=== PATIENT | male | born 1985 | race Caucasian/White ===

== ENCOUNTER 2019-04-07 18:50 | Emergency (ER) | payer OTHER ==
--- NOTE | 2019-04-07 19:06 | ER Document Report ---
ED Medical Screen (RME) - General Chief Complaint: Nausea/Vomiting/Diarrhea Stated Complaint: DIZZY,VOMITING,DIARRHEA Time Seen by Provider: 04/07/19 19:02 Mode of Arrival: Ambulatory Information source: Patient Notes: Patient presents to the emergency department with complaints of diarrhea since yesterday. Noted blood in the stool today. Reports he has been having diarrhea all night long. Reports his was sick though after they ate at [employer] but she got better. Looks good nontoxic looking. Has history of IBS. I have greeted and performed a rapid initial assessment of this patient. A comprehensive ED assessment and evaluation of the patient, analysis of test results and completion of the medical decision making process will be conducted by additional ED providers. Dictation of this chart was performed using voice recognition software; therefore, there may be some unintended grammatical errors. TRAVEL OUTSIDE OF THE [place] IN LAST 30 DAYS: No - Related Data Allergies/Adverse Reactions: No Known Allergies Allergy (Verified 04/07/19 18:52) Physical Exam - Vital signs Vitals: Temp Pulse Resp BP Pulse Ox 98.5 F 87 20 134/82 H 97 04/07/19 18:57 04/07/19 18:57 04/07/19 18:57 04/07/19 18:57 04/07/19 18:57 Course - Vital Signs Vital signs: Temp Pulse Resp BP Pulse Ox 98.5 F 87 20 134/82 H 97 04/07/19 18:57 04/07/19 18:57 04/07/19 18:57 04/07/19 18:57 04/07/19 18:57
[2019-04-07] MEDS ORDERED: ONDANSETRON 4 MG TAB.RAPDIS PO ONE (19:10)
[2019-04-07 20:01] LABS: ABSOLUTE EOSINOPHILS # (AUTO) 0.2 10^3/uL (0.0-0.6); ABSOLUTE LYMPHOCYTES (AUTO) 3.3 10^3/uL (0.5-4.7); ABSOLUTE MONOCYTES (AUTO) 0.5 10^3/uL (0.1-1.4); ABSOLUTE NEUT (AUTO) 3.6 10^3/uL (1.7-8.2); BASOPHILS % (AUTO) 0.3 % (0-2); EOSINOPHILS % (AUTO) 3.1 % (0-6); HEMATOCRIT 42.1 % (37.9-51.0); HEMOGLOBIN 14.7 g/dL (13.5-17.0); LYMPHOCYTES % (AUTO) 42.9 % (13-45); MEAN CORPUSCULAR HEMOGLOBIN 29.9 pg (27.0-33.4); MEAN CORPUSCULAR VOLUME 86 fl (80-97); MONOCYTES % (AUTO) 6.7 % (3-13); PLATELET COUNT 219 10^3/uL (150-450); RED BLOOD COUNT 4.92 10^6/uL (4.35-5.55); RED CELL DISTRIBUTION WIDTH 13.2 % (11.5-14.0); TOTAL CELLS COUNTED % (AUTO) 100 %; WHITE BLOOD COUNT 7.6 10^3/uL (4.0-10.5)
[2019-04-07 20:05] LABS: APPEARANCE,URINE CLEAR; BILIRUBIN,URINE NEGATIVE (NEGATIVE); COLOR,URINE YELLOW; GLUCOSE, URINE NEGATIVE (NEGATIVE); KETONES,URINE NEGATIVE (NEGATIVE); LEUKOCYTE ESTERASE,URINE NEGATIVE (NEGATIVE); NITRITE,URINE NEGATIVE (NEGATIVE); PROTEIN,URINE NEGATIVE (NEGATIVE); URINE SPECIFIC GRAVITY 1.026; UROBILINOGEN,URINE NEGATIVE mg/dL (<2.0)
[2019-04-07 20:18] LABS: ALANINE AMINOTRANSFERASE 156 U/L (21-72); ALBUMIN 4.7 g/dL (3.5-5.0); ALKALINE PHOSPHATASE 65 U/L (38-126); ANION GAP 9 (5-19); ASPARTATE AMINO TRANSFERASE 113 U/L (17-59); BILIRUBIN,DIRECT 0.3 mg/dL (0.0-0.4); BILIRUBIN,TOTAL 0.5 mg/dL (0.2-1.3); BLOOD UREA NITROGEN 15 mg/dL (7-20); CALCIUM 9.8 mg/dL (8.4-10.2); CARBON DIOXIDE 27 mmol/L (22-30); CHLORIDE 108 mmol/L (98-107); GLUCOSE 101 mg/dL (75-110); POTASSIUM 4.2 mmol/L (3.6-5.0); SODIUM 144.3 mmol/L (137-145); TOTAL PROTEIN 7.8 g/dL (6.3-8.2)
[2019-04-07] MEDS ORDERED: ONDANSETRON ODT 4 MG TAB (6 TAB/ER DISP) PO PRN (22:21)
--- NOTE | 2019-04-07 22:25 | ER Document Report ---
ED General - General Chief Complaint: Nausea/Vomiting/Diarrhea Stated Complaint: DIZZY,VOMITING,DIARRHEA Time Seen by Provider: 04/07/19 19:02 Mode of Arrival: Ambulatory Notes: Patient is a 33-year-old male that presents to the emergency department for chief complaint of nausea, vomiting and diarrhea. Patient reports he started having symptoms yesterday after eating [employer], he had episode of vomiting then, is had watery diarrhea over the course of the evening, and 3 today, later this evening he had one episode of bloody diarrhea, that was concerning to him so he decided come to the emergency department. He said mild abdominal cramping, denies any severe or focal pain. Currently rates his pain as a 1 out of 10 describes as an ache. He had chills, but denies any any fevers, his had similar symptoms after eating a [employer] as well. He denies any chest pain, shortness of breath, dysuria or hematuria. Past Medical History: Fatty liver disease, IBS Past Surgical History: Denies recent or pertinent surgical history Social History: Denies current tobacco, alcohol or drug use. Family History: Reviewed and noncontributory for presenting illness Allergies: Reviewed, see documented allergy list. REVIEW OF SYSTEMS: Other than noted above, the 12 point review of systems was reviewed with the patient and were negative, all pertinent findings are included in the HPI. PHYSICAL EXAMINATION: Vital signs reviewed, nursing noted reviewed. GENERAL: Well-appearing, well-nourished and in no acute distress. HEAD: Atraumatic, normocephalic. EYES: Eyes appear normal, extraocular movements intact, sclera anicteric, conjunctiva are normal. ENT: nares patent, oropharynx clear without exudates. Moist mucous membranes. NECK: Normal range of motion, supple without lymphadenopathy LUNGS: Breath sounds clear to auscultation bilaterally and equal. No wheezes rales or rhonchi. HEART: Regular rate and rhythm without murmurs ABDOMEN: Soft, mild bilateral upper abdominal discomfort with palpation, normoactive bowel sounds. No rebound, guarding, or rigidity. No masses appreciated. EXTREMITIES: Nontender, good range of motion, no pitting or edema. NEUROLOGICAL: No focal neurological deficits. Moves all extremities spontaneously Motor and sensory grossly intact on exam. PSYCH: Normal mood, normal affect. SKIN: Warm, Dry, normal turgor, no rashes or lesions noted on exposed skin TRAVEL OUTSIDE OF THE [place] IN LAST 30 DAYS: No - Related Data Allergies/Adverse Reactions: No Known Allergies Allergy (Verified 04/07/19 18:52) Past Medical History - General Information source: Patient - Social History Smoking Status: Never Smoker Family History: Reviewed & Not Pertinent Patient has suicidal ideation: No Patient has homicidal ideation: No Renal/ Medical History: Denies: Hx Peritoneal Dialysis Physical Exam - Vital signs Vitals: Temp Pulse Resp BP Pulse Ox 98.5 F 87 20 134/82 H 97 04/07/19 18:57 04/07/19 18:57 04/07/19 18:57 04/07/19 18:57 04/07/19 18:57 Course - Re-evaluation Re-evalutation: Patient seen and examined vital signs reviewed. Laboratory data and/or imaging were ordered as appropriate for the patient's presenting symptoms and complaint, with consideration of any critical or life threatening conditions that may be associated with their obtained history and exam as noted above. Patient was treated with oral Zofran Results were reviewed when available and demonstrated mild transaminitis, which the patient states is normal for him given his history of nonalcoholic fatty liver disease, otherwise is unremarkable The patient was re-evaluated and was stable Evaluation was most consistent with rectal bleeding, nausea, vomiting and diarrhea, likely mild colitis, advised monitoring for worsening symptoms, and to return if needed, otherwise follow-up with gastroenterology. Results were discussed with the patient at this point, after careful consideration I feel that that patient can be discharged from the emergency department, the patient was educated treatments and reasons to return to the emergency department based on their presumed diagnosis as noted above, they were advised to followup with a primary care physician in 2-3 days. Patient was agreeable to plan of care. *Note is created using voice recognition software and may contain spelling, syntax or grammatical errors. Laboratory 04/07/19 04/07/19 04/07/19 19:10 19:26 19:26 WBC 7.6 RBC 4.92 Hgb 14.7 Hct 42.1 MCV 86 MCH 29.9 MCHC 35.0 RDW 13.2 Plt Count 219 Seg Neutrophils % 47.0 Lymphocytes % 42.9 Monocytes % 6.7 Eosinophils % 3.1 Basophils % 0.3 Absolute Neutrophils 3.6 Absolute Lymphocytes 3.3 Absolute Monocytes 0.5 Absolute Eosinophils 0.2 Absolute Basophils 0.0 Sodium 144.3 Potassium 4.2 Chloride 108 H Carbon Dioxide 27 Anion Gap 9 BUN 15 Creatinine 1.02 Est GFR ( Amer) > 60 Est GFR (Non-Af Amer) > 60 Glucose 101 Calcium 9.8 Total Bilirubin 0.5 Direct Bilirubin 0.3 Neonat Total Bilirubin Not Reportable Neonat Direct Bilirubin Not Reportable Neonat Indirect Bili Not Reportable AST 113 H ALT 156 H Alkaline Phosphatase 65 Total Protein 7.8 Albumin 4.7 Urine Color YELLOW Urine Appearance CLEAR Urine pH 5.0 Ur Specific Henry 1.026 Urine Protein NEGATIVE Urine Glucose (UA) NEGATIVE Urine Ketones NEGATIVE Urine Blood NEGATIVE Urine Nitrite NEGATIVE Urine Bilirubin NEGATIVE Urine Urobilinogen NEGATIVE Ur Leukocyte Esterase NEGATIVE Urine WBC (Auto) 0 Urine RBC (Auto) 0 Urine Mucus (Auto) RARE Urine Ascorbic Acid NEGATIVE - Vital Signs Vital signs: Temp Pulse Resp BP Pulse Ox 98.5 F 87 20 134/82 H 97 04/07/19 18:57 04/07/19 18:57 04/07/19 18:57 04/07/19 18:57 04/07/19 18:57 - Laboratory Result Diagrams: 04/07/19 19:26 04/07/19 19:26 Laboratory results interpreted by me: 04/07/19 19:26 Chloride 108 H AST 113 H ALT 156 H Discharge - Discharge Clinical Impression: Rectal bleeding, Nausea vomiting and diarrhea Condition: Stable Disposition: HOME, SELF-CARE Instructions: Rectal Bleeding, Unclear Cause ([facility]), Gastroenteritis (adult) ([facility]) Additional Instructions: Your bleeding today was most likely from a mild infection of the colon, that could be viral bacterial, even provided a Zofran dispense pack, he can take 1 tablet every 4-6 hours if needed for nausea, bleeding should subside over the next 2 days, if it persists, or is concerning with the amount, he can always return to the emergency department, I have given a name for a room service bellhop 3 to follow-up with if you have episodes like this in the future. Referrals: CRISSY MENDOZA MD [ACTIVE STAFF] - Follow up in 3-5 days
[2019-04-07 22:44] VITALS: BP 124/81
== END 2019-04-07 22:43 | disposition home or self-care (01) ==
LOC: ER 18:50
DX: K62.5 Hemorrhage of anus and rectum (principal); R11.2 Nausea with vomiting, unspecified; R19.7 Diarrhea, unspecified; R42 Dizziness and giddiness
CPT/HCPCS: 99283; 36415; 85025; 80053; 81001; S0119